=== PATIENT | male | born 1980 | race African-American/Black ===

== ENCOUNTER → 2021-08-22 | Outpatient (CLI) | payer OTHER ==
--- NOTE | 2021-08-22 19:26 | KCIC ---
EXAM: MRI RIGHT KNEE DATE: 08/22/2021 10:25 AM CLINICAL INDICATION: Reason: RIGHT KNEE PAIN / Spl. Instructions: Pain is throughout knee, swelling. / History: Right knee pain and crunching after celebrating during soccer on 08/10/21. COMPARISON: None. TECHNIQUE: Multiplanar, multisequence MRI of the RIGHT knee was performed without contrast. FINDINGS: Moderate knee joint effusion. Small Ruiz's cyst with edema tracking caudally. Increased signal within the ACL likely low-grade sprain. PCL is intact. Increased signal about the MC L likely low-grade sprain. Fibular collateral ligament, biceps femoris and IT band are intact. Poplit eus is intact, normal in signal and morphology. Extensor mechanism is intact. Neutral patellar tracking. Medial meniscus: Intact Lateral meniscus: Intact There is a nondisplaced fracture through the lateral most aspect of the lateral femoral condyle. In a ddition there is an impaction fracture at the anterior aspect of the lateral tibial plateau. Mild edema within the soleus muscle and popliteus muscle bellies, low-grade strain. No osteonecrosis. Chondral fissuring/fraying patellar apex without discrete full-thickness defect. IMPRESSION: 1. Impaction fracture anterior aspect of the lateral tibial plateau with mild articular surface depr ession at the anterior rim. 2. Nondisplaced fracture lateral most aspect of the lateral femoral condyle. 3. Low-grade sprain MCL. Low-grade sprain ACL. 4. Mild strain popliteus and soleus muscle bellies. 5. Small knee joint effusion. Small Ruiz's cyst with edema tracking caudally, suggesting recent or shoulder fracture or leakage. Electronically signed by: Vijay Hannon MD (08/22/2021 7:24 PM) SOL
== END ==
LOC: KCIC MRI 10:08
PROVIDERS: ATTEND Family Medicine
DX: S82.141A Displaced bicondylar fracture of right tibia, initial encounter for closed fracture (principal); S72.424A Nondisplaced fracture of lateral condyle of right femur, initial encounter for closed fracture; S83.411A Sprain of medial collateral ligament of right knee, initial encounter; S86.811A Strain of other muscle(s) and tendon(s) at lower leg level, right leg, initial encounter; S83.511A Sprain of anterior cruciate ligament of right knee, initial encounter; M25.461 Effusion, right knee; M71.21 Synovial cyst of popliteal space [Baker], right knee; X58.XXXA Exposure to other specified factors, initial encounter; Y93.89 Activity, other specified; Y92.89 Other specified places as the place of occurrence of the external cause; Y99.8 Other external cause status
CPT/HCPCS: 73721